=== PATIENT | male | born 1975 | race African-American/Black ===

== ENCOUNTER 2024-06-26 16:17 | Emergency (ER) | payer OTHER ==
[~2024-06-26] VITALS: Ht 177.8 cm; Wt 86.0 kg
[2024-06-26 16:20] VITALS: O2SAT 99
[2024-06-26] MEDS: ONDANSETRON HCL 4MG/2ML INJ IV STA (17:27)
[2024-06-26] MEDS: SODIUM CHLORIDE 0.9% 1,000 ML IV ONE (17:27)
[2024-06-26] MEDS: MORPHINE SULFATE 4 MG/ML INJ (FOR IV/IM USE) IV STA (17:27)
[2024-06-26 17:42] LABS: HEMATOCRIT. 47.1 % (42.0-52.0); HEMOGLOBIN. 15.5 g/dL (14.0-18.0); MEAN CORPUSCULAR HEMOGLOBIN 29.2 pg (28.0-32.0); MEAN CORPUSCULAR HGB CONC 32.8 g/dL (31.0-37.0); MEAN CORPUSCULAR VOLUME 88.8 fL (80.0-94.0); MEAN PLATELET VOLUME 8.3 fl (7.4-10.4); PLATELET 255 x1000/uL (130-400); RED CELL DISTRIBUTION WIDTH 17.3 % (11.6-14.6); WHITE BLOOD COUNT 16.9 x1000/uL (4.5-11.0)
[2024-06-26 17:46] LABS: DIFFERENTIAL COMMENT 1
[2024-06-26 17:49] LABS: CHLORIDE 109 mEq/L (98-107); POTASSIUM 3.9 mEq/L (3.5-5.1); SODIUM 140 mEq/L (136-145)
[2024-06-26 17:50] LABS: CARBON DIOXIDE 23 mEq/L (21-32); INR 0.9; PROTHROMBIN TIME 10.3 sec (9.6-11.0)
[2024-06-26 17:51] LABS: CALCIUM 9.7 mg/dL (8.7-10.4)
[2024-06-26 17:55] LABS: CREATININE 1.3 mg/dL (0.6-1.3); GLUCOSE 130 mg/dL (70-105); UREA NITROGEN BLOOD 17 mg/dL (9-23)
[2024-06-26 18:25] VITALS: BP 114/67; PULSE 113; RESP 18; TEMP 37.00296; O2SAT 96
[2024-06-26 18:37] LABS: PLATELET ESTIMATE NORMAL
== END 2024-06-26 19:03 | disposition left against medical advice (07) ==
LOC: ER 16:17
DX: R10.9 Unspecified abdominal pain (principal); D72.829 Elevated white blood cell count, unspecified; F17.200 Nicotine dependence, unspecified, uncomplicated; E11.9 Type 2 diabetes mellitus without complications; Z98.890 Other specified postprocedural states
CPT/HCPCS: 99291; 96374; 96361; 96375; 80048; 83690; 85025; 85610; 36415; J2405; J2270; J7030